=== PATIENT | female | born 1985 | race American Indian/Alaskan Native ===

== ENCOUNTER 2019-03-27 12:31 | Emergency (ER) | payer SELFPAY ==
[2019-03-27 12:36] VITALS: BP 119/76
--- NOTE | 2019-03-27 13:03 | Event Note ---
ED Screening Note Date of service: 03/27/19 Time: 13:02 ED Screening Note: 33 y/o female comes in for toothache and dysuria times 1 week. This initial assessment/diagnostic orders/clinical plan/treatment(s) is/are subject to change based on patients health status, clinical progression and re- assessment by fellow clinical providers in the ED. Further treatment and workup at subsequent clinical providers discretion. Patient/guardian urged not to elope from the ED as their condition may be serious if not clinically assessed and managed. Initial orders include:
[2019-03-27 14:17] LABS: Bacteria,Urine 1+ /HPF (Negative); Bilirubin,Urine NEG (Negative); Blood,Urine SM (Negative); Color,Urine Yellow (Yellow); Mucus,Urine FEW /HPF; Protein,Urine <15 mg/dL mg/dL (Negative); Urobilinogen,Urine < 2.0 mg/dL (<2.0)
[2019-03-27 14:19] LABS: HCG Qualitative,Urine Negative (Negative)
[2019-03-27] MEDS ORDERED: FLAGYL PO ONE (14:36)
[2019-03-27] MEDS ORDERED: ZITHROMAX PO ONE (14:36)
[2019-03-27] MEDS ORDERED: XYLOCAINE 1% MPF 5 mL INFILTRATI ONE (14:36)
[2019-03-27] MEDS ORDERED: ROCEPHIN IM ONE (14:36)
--- NOTE | 2019-03-27 14:43 | Emergency Department Report ---
ED General Adult HPI - General Chief complaint: Urogenital-Female Stated complaint: TOOTHACHE/POSS UTI Time Seen by Provider: 03/27/19 13:27 Source: patient Mode of arrival: Ambulatory Limitations: No Limitations - History of Present Illness Initial comments: Patient is a 33-year-old [place] female who is presenting with 1 week of dysuria and vaginal discharge. Patient states that the pain is 9 out of 10 in severity. Patient denies any abnormal vaginal bleeding and there is no radiation of pain to her back. Patient does state that she has a history of gonorrhea and there is some concern for STDs. Patient also states she has pain in the left face. This is worse with chewing. Pain is 9 out of 10 as well. Severity scale (0 -10): 9 - Related Data Previous Rx's Medication Instructions Recorded Last Taken Type Clindamycin [Clindamycin CAP] 300 mg PO Q8H #21 cap 03/27/19 Unknown Rx Ibuprofen [Motrin 600 MG tab] 600 mg PO Q8H PRN #20 tablet 03/27/19 Unknown Rx traMADol [Ultram] 50 mg PO Q6HR PRN #12 tablet 03/27/19 Unknown Rx Allergies Allergy/AdvReac Type Severity Reaction Status Date / Time No Known Allergies Allergy Verified 03/27/19 13:02 ED Review of Systems ROS: Stated complaint: TOOTHACHE/POSS UTI Other details as noted in HPI Comment: All other systems reviewed and negative ED Past Medical Hx - Past Medical History Previous Medical History?: No - Surgical History Past Surgical History?: No - Social History Smoking Status: Never Smoker Substance Use Type: None - Medications Home Medications: Home Medications Medication Instructions Recorded Confirmed Last Taken Type Clindamycin [Clindamycin CAP] 300 mg PO Q8H #21 cap 03/27/19 Unknown Rx Ibuprofen [Motrin 600 MG tab] 600 mg PO Q8H PRN #20 tablet 03/27/19 Unknown Rx traMADol [Ultram] 50 mg PO Q6HR PRN #12 tablet 03/27/19 Unknown Rx ED Physical Exam - General Limitations: No Limitations General appearance: alert, in no apparent distress - Head Head exam: Present: atraumatic, normocephalic - Eye Eye exam: Present: normal appearance, PERRL, EOMI - ENT ENT exam: Present: mucous membranes moist - Expanded ENT Exam Expanded Teeth exam: Present: dental caries 1 - Dental Tenderness (these 2 teeth are necrotic and tender to touch. There is some erythema to the gum surrounding these 2 teeth.) Throat exam: Positive: normal inspection - Neck Neck exam: Present: normal inspection - Respiratory Respiratory exam: Present: normal lung sounds bilaterally. Absent: respiratory distress, wheezes, rales, rhonchi - Cardiovascular Cardiovascular Exam: Present: regular rate, normal rhythm. Absent: systolic murmur, diastolic murmur, rubs, gallop - GI/Abdominal GI/Abdominal exam: Present: soft, normal bowel sounds. Absent: distended, tenderness, guarding, rebound - Extremities Exam Extremities exam: Present: normal inspection - Back Exam Back exam: Present: normal inspection - Neurological Exam Neurological exam: Present: alert, oriented X3 - Psychiatric Psychiatric exam: Present: normal affect, normal mood - Skin Skin exam: Present: warm, dry, intact, normal color. Absent: rash ED Course Vital Signs 03/27/19 12:35 Temperature 98.2 F Pulse Rate 94 H Respiratory 11 L Rate Blood Pressure 119/76 [Right] O2 Sat by Pulse 98 Oximetry ED Medical Decision Making - Lab Data Lab Results 03/27/19 Range/Units Unknown Urine Color Yellow (Yellow) Urine Turbidity Slightly-cloudy (Clear) Urine pH 5.0 (5.0-7.0) Ur Specific [place] 1.018 (1.003-1.030) Urine Protein <15 mg/dl (Negative) mg/dL Urine Glucose (UA) Neg (Negative) mg/dL Urine Ketones Neg (Negative) mg/dL Urine Blood Sm (Negative) Urine Nitrite Neg (Negative) Urine Bilirubin Neg (Negative) Urine Urobilinogen < 2.0 (<2.0) mg/dL Ur Leukocyte Esterase Neg (Negative) Urine WBC (Auto) 2.0 (0.0-6.0) /HPF Urine RBC (Auto) 4.0 (0.0-6.0) /HPF U Epithel Cells (Auto) 1.0 (0-13.0) /HPF Urine Bacteria (Auto) 1+ (Negative) /HPF Urine Mucus Few /HPF Urine HCG, Qual Negative (Negative) - Medical Decision Making Patient with a dental abscess will be treated with clindamycin. Patient's urinalysis shows no evidence of UTI. Patient likely with vaginitis. Patient be given Rocephin and azithromycin and Flagyl the patient will be discharged home. Critical care attestation.: If time is entered above; I have spent that time in minutes in the direct care of this critically ill patient, excluding procedure time. ED Disposition Clinical Impression: Dental abscess, Vaginitis Disposition: TO HOME OR SELFCARE Is pt being admited?: No Does the pt Need Aspirin: No Condition: Stable Instructions: Dental Abscess (ED), Vaginitis (ED) Referrals: BENTLEY MALDONADO MD [Primary Care Provider] - 3-5 Days Time of Disposition: 14:42
== END 2019-03-27 15:41 | disposition home or self-care (01) ==
LOC: ED 12:31
DX: N76.0 Acute vaginitis (principal); K04.7 Periapical abscess without sinus
CPT/HCPCS: 81001; 81025; 96372; 99283; J0696